=== PATIENT | female | born 1990 | race Caucasian/White ===

== ENCOUNTER → 2021-07-18 10:54 | Outpatient (BNVA) | payer OTHER, SELFPAY | PROVIDERS: Family Provider Family Medicine; PCP Family Medicine; Visit Provider Emergency Medicine | DX: R07.0 Pain in throat (principal); R22.1 Localized swelling, mass and lump, neck; E07.89 Other specified disorders of thyroid | CPT/HCPCS: 84439; 84443; 84481; 85025 ==

== ENCOUNTER → 2021-09-23 09:44 | Outpatient (BNVA) | payer OTHER, SELFPAY | PROVIDERS: Family Provider Family Medicine; PCP Family Medicine; Visit Provider Nurse Practitioner Family | DX: Z20.822 Contact with and (suspected) exposure to COVID-19 (principal); J11.1 Influenza due to unidentified influenza virus with other respiratory manifestations | CPT/HCPCS: 87400; 87635 ==

== ENCOUNTER → 2021-11-18 09:40 | Outpatient (BNVA) | payer OTHER, SELFPAY | PROVIDERS: Family Provider Family Medicine; PCP Family Medicine; Visit Provider Nurse Practitioner Family | DX: J11.1 Influenza due to unidentified influenza virus with other respiratory manifestations (principal) | CPT/HCPCS: 87400 ==

== ENCOUNTER → 2022-02-11 09:32 | Outpatient (BNVA) | payer OTHER, SELFPAY | PROVIDERS: Family Provider Family Medicine; PCP Family Medicine; Visit Provider Emergency Medicine | DX: N92.6 Irregular menstruation, unspecified (principal); Z32.01 Encounter for pregnancy test, result positive | CPT/HCPCS: 81025 ==

== ENCOUNTER 2022-05-15 19:55 | Emergency (ER) | payer BC, MEDICAID, SELFPAY ==
[2022-05-15 20:04] VITALS: BP 118/73; PULSE 90; RESP 24; TEMP 36.8; O2SAT 96
[2022-05-15 21:58] LABS: Basophils % 0.3 %; Eosinophils # 0.3 10^3/uL (0.0-0.8); Eosinophils % 3.6 %; Hematocrit 38.4 % (37.0-47.0); Hemoglobin 13.1 g/dL (11.5-15.3); Lymphocytes # 1.3 10^3/uL (0.8-4.8); Lymphocytes % 13.1 %; Mean Corpuscular HGB Conc 34.1 g/dL (30.0-36.0); Mean Corpuscular Hemoglobin 30.8 pg (28.0-34.0); Mean Corpuscular Volume 90.4 fl (81-99); Mean Platelet Volume 9.2 fL (7.4-10.4); Monocytes # 0.6 10^3/uL (0.2-0.9); Neutrophils % 76.6 %; Nucleated Red Blood Cells % 0 %; Platelet Count 225 10^3/cmm (130-400); Red Blood Count 4.25 10^6/uL (4.1-5.3); Red Cell Distribution Width 12.9 % (12.1-15.1); White Blood Count 9.5 10^3/uL (4.0-10.0)
[2022-05-15 22:00] VITALS: PULSE 78; RESP 18; O2SAT 94
[2022-05-15 22:04] VITALS: PULSE 81; RESP 18; O2SAT 95
[2022-05-15 22:08] LABS: Alanine Aminotransferase 29 U/L (0-33); Alkaline Phosphatase 67 U/L (35-105); Anion Gap 14.9 (5-19); Aspartate Amino Transferase 18 U/L (0-32); Blood Urea Nitrogen 6 mg/dL (6-20); Calcium 9.2 mg/dL (8.5-10.5); Carbon Dioxide 25 mmol/L (22-29); Chloride 102 mmol/L (98-107); Globulin 3.1 g/dL (1.3-4.6); Glomerular Filtration Rate 145.9 mL/min (90-130); Glucose 83 mg/dL (65-115); Osmolality Calculated 283 mOsm/kg (285-295); Potassium 3.9 mmol/L (3.5-5.1); Sodium 138 mmol/L (136-145); Total Bilirubin 0.2 mg/dL (0.15-1.2); Total Protein 7.1 g/dL (6.6-8.7)
[2022-05-15 22:13] LABS: Add Urine Microscopic? NO; Charge for UA Resulting for Rev
[2022-05-15 22:16] LABS: Bilirubin Urine Neg (Negative); Blood Urine Neg (Negative); Glucose Urine UA Norm (Normal); Ketones Urine Negative (Negative); Leukocyte Esterase Urine Negative (Negative); Nitrate Urine Negative (Negative); Protein Urine Neg (Negative); Urine Appearance Clear (CLEAR); Urine Color Yellow (Yellow); Urobilinogen Urine Neg (Negative); pH Urine 7 (5-7)
--- NOTE | 2022-05-15 22:58 | ED_ITS ---
Documented by User: Milagro Freeman, PROTOTYPE TECHNICIAN-C 05/16/22 01:43 HPI - SOB/Dyspnea General: Chief Complaint: Shortness of Breath/Dyspnea Stated Complaint: sob Time Seen by Provider: 05/15/22 20:19 History of Present Illness: HPI Narrative: 31-year-old female in today with complaints of shortness of breath. She reports that over the past week or so she has had significant nasal congestion and drainage. She reports that she is 20 weeks . With a normal without any complications thus far. She reports that she has been using Mucinex that is safe in however last night it really did not help her and she has had more shortness of breath today. She denies any fever, chills, nausea, vomiting. She denies any uterine cramping or vaginal bleeding. She does still feel baby movement that has been a new development over the recent week or so. Associated symptoms: Deny chest pain, fever(s), lightheadedness, palpitations or syncope Review of Systems Const: Denies: fever(s), chills or body aches ENMT: Reports: nasal discharge, nasal congestion and post nasal drip; Denies: throat pain Card: Denies: chest pain, palpitations, irregular heart rhythm, lightheadedness or syncope Resp: Reports: dyspnea, non-productive cough and wheezing; Denies: productive cough : Denies: flank pain, difficulty voiding, dysuria, urinary frequency, urinary urgency or urinary hesitancy Neuro: Denies: headache(s), numbness in extremities or weakness in extremities PFSH ED PFSH: Medical History test positive Social History Smoking and tobacco status: never smoked Female Reproductive History: Spontaneous abortions: No Physical Exam HENMT: COMMON NORMALS: external ears normal; TM's not normal bilaterally (Dull TM no erythema bilateral) EXTERNAL EAR: Yes external ears normal TYMPANIC MEMBRANE: TM(s) not normal bilaterally (Dull TM no erythema bilateral) THROAT: postnasal drainage Resp: EFFORT & INSPECTION: Yes able to speak in complete sentences and Yes symmetric chest movement AUSCULTATION: wheezes expiratory wheezes, inspiratory wheezes and throughout Cardio: COMMON NORMALS: regular rate, regular rhythm, S1 normal heart sound present and S2 normal heart sound present RATE: regular rate RHYTHM: regular rhythm HEART SOUNDS: S1 normal heart sound present and S2 normal heart sound present Course Vital Signs: Vital signs: Vital Signs Temperature 98.3 F 05/15/22 20:04 Pulse Rate 66 05/15/22 23:16 Respiratory Rate 18 05/15/22 23:16 Blood Pressure 129/65 05/15/22 23:16 Pulse Oximetry 92 05/15/22 23:16 Oxygen Delivery Me thod 05/15/22 22:04 MDM - SOB/Dyspnea Medical Decision Making Patient is a 31-year-old female in for nasal congestion, drainage, increased shortness of breath. She is in no acute distress. Patient's vital signs remained stable. She did have some inspiratory expiratory wheezes throughout. Albuterol nebulized treatment provided. Toppled heart tones. Reevaluation?patient reports resolution of symptoms. She reports that she is ready to be discharged to home. We discussed use of home inhaler as needed. I encouraged continued conservative treatment for allergies at home. I encouraged her to follow-up with her MEDICAL RECORDS ANALYST next week. Return to the emergency department for any new or worsening symptoms, increased shortness of breath, fever, chills, nausea, vomiting. Patient and spouse verbalized understanding of instructions and voiced readiness to discharge to home. Lab Data : 05/15/22 21:37 05/15/22 21:37 Labs/Radiology: Laboratory Results WBC 9.5 10^3/uL (4.0-10.0) 05/15/22 21:37 RBC 4.25 10^6/uL (4.1-5.3) 05/15/22 21:37 Hgb 13.1 g/dL (11.5-15.3) 05/15/22 21:37 Hct 38.4 % (37.0-47.0) 05/15/22 21:37 MCV 90.4 fl (81-99) 05/15/22 21:37 MCH 30.8 pg (28.0-34.0) 05/15/22 21:37 MCHC 34.1 g/dL (30.0-36.0) 05/15/22 21:37 RDW 12.9 % (12.1-15.1) 05/15/22 21:37 Plt Count 225 10^3/cmm (130-400) 05/15/22 21:37 MPV 9.2 fL (7.4-10.4) 05/15/22 21:37 Neut % (Auto) 76.6 % 05/15/22 21:37 Lymph % (Auto) 13.1 % 05/15/22 21:37 [place] % (Auto) 6.0 % 05/15/22 21:37 Eos % (Auto) 3.6 % 05/15/22 21:37 Baso % (Auto) 0.3 % 05/15/22 21:37 Neut # (Auto) 7.30 10^3/uL (1.8-7.7) 05/15/22 21:37 Lymph # (Auto) 1.3 10^3/uL (0.8-4.8) 05/15/22 21:37 [place] # (Auto) 0.6 10^3/uL (0.2-0.9) 05/15/22 21:37 Eos # (Auto) 0.3 10^3/uL (0.0-0.8) 05/15/22 21:37 Baso # (Auto) 0.0 10^3/uL (0.0-0.1) 05/15/22 21:37 Nucleated RBC % (auto) 0 % 05/15/22 21:37 Nucleated RBCs # 0.0 /100WBC 05/15/22 21:37 Sodium 138 mmol/L (136-145) 05/15/22 21:37 Potassium 3.9 mmol/L (3.5-5.1) 05/15/22 21:37 Chloride 102 mmol/L (98-107) 05/15/22 21:37 Carbon Dioxide 25 mmol/L (22-29) 05/15/22 21:37 Anion Gap 14.9 (5-19) 05/15/22 21:37 BUN 6 mg/dL (6-20) 05/15/22 21:37 Creatinine 0.5 mg/dL (0.5-0.9) 05/15/22 21:37 GFR Calculation 145.9 mL/min (90-130) H 05/15/22 21:37 Glucose 83 mg/dL (65-115) 05/15/22 21:37 Calculated Osmolality 283 mOsm/kg (285-295) L 05/15/22 21:37 Calcium 9.2 mg/dL (8.5-10.5) 05/15/22 21:37 Total Bilirubin 0.2 mg/dL (0.15-1.2) 05/15/22 21:37 AST 18 U/L (0-32) 05/15/22 21:37 ALT 29 U/L (0-33) 05/15/22 21:37 Alkaline Phosphatase 67 U/L (35-105) 05/15/22 21:37 Total Protein 7.1 g/dL (6.6-8.7) 05/15/22 21:37 Albumin 4.0 g/dL (3.5-5.2) 05/15/22 21:37 Globulin 3.1 g/dL (1.3-4.6) 05/15/22 21:37 Urine Color Yellow (Yellow) 05/15/22 21:47 Urine Appearance Clear (CLEAR) 05/15/22 21:47 Urine pH 7 (5-7) 05/15/22 21:47 Ur Specific [place] 1.010 (1.005-1.030) 05/15/22 21:47 Urine Protein Neg (Negative) 05/15/22 21:47 Urine Glucose (UA) Norm (Normal) 05/15/22 21:47 Urine Ketones Negative (Negative) 05/15/22 21:47 Urine Blood Neg (Negative) 05/15/22 21:47 Urine Nitrate Negative (Negative) 05/15/22 21:47 Urine Bilirubin Neg (Negative) 05/15/22 21:47 Urine Urobilinogen Neg mg/dL (Negative) 05/15/22 21:47 Ur Leukocyte Esterase Negative (Negative) 05/15/22 21:47 Discharge Plan Discharge Patient Disposition: Home Clinical Impression: Wheezing, Allergic rhinitis Condition: Stable Prescriptions: New albuterol sulfate 90 mcg/actuation aerosol powdr breath activated 2 inh inhalation Q6H PRN (Reason: shortness of breath or wheezing) Qty: 1 0RF No Action guaifenesin [Mucinex] 600 mg tablet extended release 12hr 600 mg PO BID PNV #[id number] acid-omega3 30 mg iron-10 mg iron-1 mg capsule 1 cap PO .COMPLEX Qty: 30 2RF Rx Instructions: 1 cap PO daily; Discharge Orders: Discharge ED (Routine); Ordered 05/15/22 Ordered By: Milagro Freeman Referrals: Erika Castaneda DO [Primary Care Provider] - Discharge Diet: Usual diet Discharge Activity: Resume usual activity Patient Instructions: Wheezing (ED) Activity Restrictions/Additional Instructions: Use the inhaler as instructed as needed for wheezing. Continue conservative treatments at home to help manage allergies. Call next week and follow-up with your MEDICAL RECORDS ANALYST. Return to the emergency department for any new or worsening symptoms or shortness of breath and wheezing not relieved with the albuterol inhaler. Coding Level of Care Code ED Lpn Medical Assistant for Chg Fwd Exam Expanded Problem Focused Documented by User: Pako Santa DO 05/16/22 06:30 HPI - SOB/Dyspnea General: Chief Complaint: Shortness of Breath/Dyspnea Stated Complaint: sob Time Seen by Provider: 05/15/22 20:19 PFSH ED PFSH: Medical History test positive Social History Smoking and tobacco status: never smoked Course Vital Signs: Vital signs: Vital Signs Temperature 98.3 F 05/15/22 20:04 Pulse Rate 66 05/15/22 23:16 Respiratory Rate 18 05/15/22 23:16 Blood Pressure 129/65 05/15/22 23:16 Pulse Oximetry 92 05/15/22 23:16 Oxygen Delivery Me thod 05/15/22 22:04 MDM - SOB/Dyspnea Medical Decision Making Patient is a 31-year-old female in for nasal congestion, drainage, increased shortness of breath. She is in no acute distress. Patient's vital signs remained stable. She did have some inspiratory expiratory wheezes throughout. Albuterol nebulized treatment provided. Toppled heart tones. Reevaluation?patient reports resolution of symptoms. She reports that she is ready to be discharged to home. We discussed use of home inhaler as needed. I encouraged continued conservative treatment for allergies at home. I encouraged her to follow-up with her MEDICAL RECORDS ANALYST next week. Return to the emergency department for any new or worsening symptoms, increased shortness of breath, fever, chills, nausea, vomiting. Patient and spouse verbalized understanding of instructions and voiced readiness to discharge to home. Chart reviewed and patient discussed with midlevel. Agree with assessment and plan. Lab Data : 05/15/22 21:37 05/15/22 21:37 Labs/Radiology: Laboratory Results WBC 9.5 10^3/uL (4.0-10.0) 05/15/22 21:37 RBC 4.25 10^6/uL (4.1-5.3) 05/15/22 21:37 Hgb 13.1 g/dL (11.5-15.3) 05/15/22 21:37 Hct 38.4 % (37.0-47.0) 05/15/22 21:37 MCV 90.4 fl (81-99) 05/15/22 21:37 MCH 30.8 pg (28.0-34.0) 05/15/22 21:37 MCHC 34.1 g/dL (30.0-36.0) 05/15/22 21:37 RDW 12.9 % (12.1-15.1) 05/15/22 21:37 Plt Count 225 10^3/cmm (130-400) 05/15/22 21:37 MPV 9.2 fL (7.4-10.4) 05/15/22 21:37 Neut % (Auto) 76.6 % 05/15/22 21:37 Lymph % (Auto) 13.1 % 05/15/22 21:37 [place] % (Auto) 6.0 % 05/15/22 21:37 Eos % (Auto) 3.6 % 05/15/22 21:37 Baso % (Auto) 0.3 % 05/15/22 21:37 Neut # (Auto) 7.30 10^3/uL (1.8-7.7) 05/15/22 21:37 Lymph # (Auto) 1.3 10^3/uL (0.8-4.8) 05/15/22 21:37 [place] # (Auto) 0.6 10^3/uL (0.2-0.9) 05/15/22 21:37 Eos # (Auto) 0.3 10^3/uL (0.0-0.8) 05/15/22 21:37 Baso # (Auto) 0.0 10^3/uL (0.0-0.1) 05/15/22 21:37 Nucleated RBC % (auto) 0 % 05/15/22 21:37 Nucleated RBCs # 0.0 /100WBC 05/15/22 21:37 Sodium 138 mmol/L (136-145) 05/15/22 21:37 Potassium 3.9 mmol/L (3.5-5.1) 05/15/22 21:37 Chloride 102 mmol/L (98-107) 05/15/22 21:37 Carbon Dioxide 25 mmol/L (22-29) 05/15/22 21:37 Anion Gap 14.9 (5-19) 05/15/22 21:37 BUN 6 mg/dL (6-20) 05/15/22 21:37 Creatinine 0.5 mg/dL (0.5-0.9) 05/15/22 21:37 GFR Calculation 145.9 mL/min (90-130) H 05/15/22 21:37 Glucose 83 mg/dL (65-115) 05/15/22 21:37 Calculated Osmolality 283 mOsm/kg (285-295) L 05/15/22 21:37 Calcium 9.2 mg/dL (8.5-10.5) 05/15/22 21:37 Total Bilirubin 0.2 mg/dL (0.15-1.2) 05/15/22 21:37 AST 18 U/L (0-32) 05/15/22 21:37 ALT 29 U/L (0-33) 05/15/22 21:37 Alkaline Phosphatase 67 U/L (35-105) 05/15/22 21:37 Total Protein 7.1 g/dL (6.6-8.7) 05/15/22 21:37 Albumin 4.0 g/dL (3.5-5.2) 05/15/22 21:37 Globulin 3.1 g/dL (1.3-4.6) 05/15/22 21:37 Urine Color Yellow (Yellow) 05/15/22 21:47 Urine Appearance Clear (CLEAR) 05/15/22 21:47 Urine pH 7 (5-7) 05/15/22 21:47 Ur Specific [place] 1.010 (1.005-1.030) 05/15/22 21:47 Urine Protein Neg (Negative) 05/15/22 21:47 Urine Glucose (UA) Norm (Normal) 05/15/22 21:47 Urine Ketones Negative (Negative) 05/15/22 21:47 Urine Blood Neg (Negative) 05/15/22 21:47 Urine Nitrate Negative (Negative) 05/15/22 21:47 Urine Bilirubin Neg (Negative) 05/15/22 21:47 Urine Urobilinogen Neg mg/dL (Negative) 05/15/22 21:47 Ur Leukocyte Esterase Negative (Negative) 05/15/22 21:47 Discharge Plan Discharge Patient Disposition: Home Clinical Impression: Wheezing, Allergic rhinitis Condition: Stable Prescriptions: New albuterol sulfate 90 mcg/actuation aerosol powdr breath activated 2 inh inhalation Q6H PRN (Reason: shortness of breath or wheezing) Qty: 1 0RF No Action guaifenesin [Mucinex] 600 mg tablet extended release 12hr 600 mg PO BID PNV #[id number] acid-omega3 30 mg iron-10 mg iron-1 mg capsule 1 cap PO .COMPLEX Qty: 30 2RF Rx Instructions: 1 cap PO daily; Discharge Orders: Discharge ED (Routine); Ordered 05/15/22 Ordered By: Milagro Freeman Referrals: Erika Castaneda DO [Primary Care Provider] - Discharge Diet: Usual diet Discharge Activity: Resume usual activity Patient Instructions: Wheezing (ED) Activity Restrictions/Additional Instructions: Use the inhaler as instructed as needed for wheezing. Continue conservative treatments at home to help manage allergies. Call next week and follow-up with your MEDICAL RECORDS ANALYST. Return to the emergency department for any new or worsening symptoms or shortness of breath and wheezing not relieved with the albuterol inhaler. Coding Level of Care Code ED Lpn Medical Assistant for Sunshineg Fwd Exam Expanded Problem Focused
[2022-05-15 23:16] VITALS: BP 129/65; PULSE 66; RESP 18; O2SAT 92
== END 2022-05-15 23:17 | disposition home or self-care (01) ==
PROVIDERS: Emergency Provider Nurse Practitioner Family; PCP Family Medicine
DX: J30.9 Allergic rhinitis, unspecified (principal); R06.2 Wheezing
CPT/HCPCS: 80053; 81003; 85025; 94640; 99283; J7611

== ENCOUNTER → 2022-09-05 16:38 | Outpatient (BNVA) | payer BC, MEDICAID, SELFPAY | PROVIDERS: PCP Family Medicine; Visit Provider Emergency Medicine | DX: R68.89 Other general symptoms and signs (principal); R11.0 Nausea; R11.2 Nausea with vomiting, unspecified; Z33.1 Pregnant state, incidental | CPT/HCPCS: 87400 ==

== ENCOUNTER → 2023-06-12 10:05 | Outpatient (BNVA) | payer OTHER, SELFPAY | PROVIDERS: PCP Family Medicine; Visit Provider Emergency Medicine | DX: J02.9 Acute pharyngitis, unspecified (principal); R05.8 Other specified cough | CPT/HCPCS: 87071; 87880 ==

== ENCOUNTER 2025-02-03 08:27 | Emergency (ER) | payer BC, MEDICAID, SELFPAY ==
--- NOTE | 2025-02-03 08:31 | XRR_ITS ---
PROCEDURE INFORMATION: Exam: XR Left Foot Exam date and time: 02/03/2025 8:33 AM Age: 34 years old Clinical indication: Injury or trauma; Other: Rolled ankle; Sprain or strain; Left TECHNIQUE: Imaging protocol: Radiologic exam of the left foot. Views: 3 or more views. COMPARISON: CR (LOW EXM, ) 02/03/2025 8:33 AM FINDINGS: Bones/joints: No acute fracture is detected Soft tissues: There is mild soft tissue swelling. XR/XR foot LT min 3V* [id number] IMPRESSION: No acute fracture detected
--- NOTE | 2025-02-03 08:31 | XRR_ITS ---
PROCEDURE INFORMATION: Exam: XR Left Ankle Exam date and time: 02/03/2025 8:33 AM Age: 34 years old Clinical indication: Injury or trauma; Other: Rolled ankle; Sprain or strain; Left TECHNIQUE: Imaging protocol: Radiologic exam of the left ankle. Views: 3 or more views. COMPARISON: CR XR foot LT min 3V* [id number] 02/03/2025 8:33 AM FINDINGS: Bones/joints: There is no detectable joint effusion. There are no acute fractures. The ankle mortise is intact. Soft tissues: There is mild soft tissue swelling. XR/XR ankle LT min 3V* [id number] IMPRESSION: Mild soft tissue swelling. No acute fracture detected
[2025-02-03 08:37] VITALS: BP 118/85; PULSE 88; RESP 17; TEMP 36.7; O2SAT 96; BMI 37.9
--- NOTE | 2025-02-03 08:37 | ED_ITS ---
HPI - Extremity Injury (Lower) General: Chief Complaint: Extremity Injury, Lower Stated Complaint: fell, left ankle injury Time Seen by Provider: 02/03/25 08:31 Source: patient Mode of arrival: ambulatory Limitations: no limitations History of Present Illness: 34-year-old female who states she steppe d in a hole last night twisted her left ankle states she has been having left ankle pain since then. States pains in the left lateral ankle and foot rates pain a 7 out of 10 has not been able ambulate denies any other injuries Related Data Previous Rx's ?Medication ?Instructions ?Recorded vitamin#30 30 mg iron-10 1 cap PO .COMPLEX #3 0 caps 04/01/22 mg iron-folic acid 1 mg-omg3 capsule albuterol sulfate 90 mcg/actuation 2 inh inhalation Q6 H PRN shortness 05/15/22 breath activated powder inhaler of breath or wheezing #1 ea fexofenadine 60 mg-pseudoephedrine 1 tab PO Q12H PRN s inus symptoms 06/12/23 ER 120 mg tablet,ext.release,12 hr 14 days #30 tabs (Celina-D 12 Hour) ondansetron 4 mg disintegrating 4 mg PO Q6H PRN nausea and 02/05/24 tablet vomiting #30 tabs kdpnlcjyvalzr-LV-zlwfqewhpfd 5 5 ml PO Q4H PRN cold sy mptoms #237 02/05/24 mg-10 mg-100 mg/5 mL oral liquid mL (Adult Tussin CF) Allergies Allergy/AdvReac Type Severity Reaction Status Date / Time No Known Allergies Allergy Verified 02/05/24 09:21 Review of Systems Const: Denies: fever(s), chills, body aches or change in appetite ENMT: Denies: throat pain or dental pain Card: Denies: chest pain Resp: Denies: dyspnea GI: Denies: abdominal pain, nausea, vomiting or diarrhea Musc: Reports: extremity pain; Denies: neck pain or back pain Skin/Breast: Denies: rash Neuro: Denies: headache(s) PFSH ED PFSH: Medical History test positive Social History Smoking and tobacco/nicotine status: never used tobacco/nicotine Female Reproductive History: Spontaneous abortions: No Physical Exam Const: COMMON NORMALS: no acute distress, patient oriented x3 and healthy appearing HENMT: COMMON NORMALS: normocephalic and atraumatic HEAD & SCALP: normocephalic and atraumatic Neck/C-Spine: COMMON NORMALS: full ROM and supple Chest: COMMONS NORMALS: normal inspection of the chest Resp: COMMON NORMALS: normal respiratory effort Cardio: COMMON NORMALS: regular rate RATE: regular rate Extremity: NARRATIVE EXTREMITY EXAM: Tenderness over left lateral ankle and foot does have swelling no obvious deformity Neuro: COMMON NORMALS: patient oriented x3, moves all extremities and no focal motor deficits Psych: COMMON NORMALS: mental status grossly normal, Normal thought process present and cooperative THOUGHT PROCESS: Normal thought process present Skin: COMMON NORMALS: no rashes or lesions noted and no wounds GENERAL SKIN EXAM: no rashes or lesions noted Course Vital Signs: Vital signs: Vital Signs Temperature 98.1 F 02/03/25 08:37 Pulse Rate 88 02/03/25 08:37 Respiratory Rate 17 02/03/25 08:37 Blood Pressure 118/85 02/03/25 08:37 Pulse Oximetry 96 02/03/25 08:37 Oxygen Delivery Me thod Room Air 02/03/25 08:37 MDM - Extremity Injury (Lower) Medical Decision Making Patient presents for an ankle sprain imaging here shows no fracture we will place her in a splint she is to weight-bear as tolerated we will get her follow- up with podiatry. Medical Records I reviewed the patient's medical records. Lab Data Radiology Impressions Ankle X-Ray 02/03/25 08:31 IMPRESSION: Mild soft tissue swelling. No acute fracture detected All radiology interpretation(s) finalized by discharge Discharge Plan Discharge Patient Disposition: Home Clinical Impression: Ankle sprain and strain Condition: Stable Prescriptions: No Action fexofenadine-pseudoephedrine [Celina-D 12 Hour] 60-120 mg tablet extended release 12 hr 1 tab PO Q12H PRN (Reason: sinus symptoms) 14 Days Qty: 30 2RF Adult Tussin CF 5-10-100 mg/5 mL liquid 5 ml PO Q4H PRN (Reason: cold symptoms) Qty: 237 0RF Rx Instructions: follow label instructions ondansetron 4 mg tablet,disintegrating 4 mg PO Q6H PRN (Reason: nausea and vomiting) Qty: 30 0RF Rx Instructions: 340b please PNV #[id number] acid-omega3 30 mg iron-10 mg iron-1 mg capsule 1 cap PO .COMPLEX Qty: 30 2RF Rx Instructions: 1 cap PO daily; albuterol sulfate 90 mcg/actuation aerosol powdr breath activated 2 inh inhalation Q6H PRN (Reason: shortness of breath or wheezing) Qty: 1 0RF Discharge Orders: Discharge ED (Routine); Ordered 02/03/25 Ordered By: Linsey Mobley Referrals: Maldonado Liang DPM [Physician, Podiatry] - 4-7 days Rashad Abrams MD [Primary Care Provider] Discharge Diet: Advance as tolerated Discharge Activity: Limit activity as instructed and Use walker/crutches as instructed Patient Instructions: Ankle Sprain (ED) Print Language: Mongolian Coding Level of Care Code ED Marine Mammal Trainer for Marta Anderson
[2025-02-03] MEDS: HYDROcodone-acetaminophen 5-325 mg Tablet 1 TAB PO (08:44)
[2025-02-03 09:33] VITALS: BP 102/78; PULSE 79; O2SAT 95
--- NOTE | 2025-02-05 12:56 | PC.NURSE ---
Called pt and scheduled her podiatry follow up appt for tomorrow 02/06/25 at 0015.
== END 2025-02-03 09:35 | disposition home or self-care (01) ==
PROVIDERS: Emergency Provider Emergency Medicine; PCP Family Medicine
DX: S93.402A Sprain of unspecified ligament of left ankle, initial encounter (principal); W18.43XA Slipping, tripping and stumbling without falling due to stepping from one level to another, initial encounter; Z79.899 Other long term (current) drug therapy
CPT/HCPCS: 29515; 73610; 73630; 99283; E0114; J9999

== ENCOUNTER 2025-03-23 19:13 | Emergency (ER) | payer BC, MEDICAID, SELFPAY ==
--- OUTSIDE RECORDS SUMMARY | 2023-02-01 07:00 | XMS_ITS | Continuity of Care Document ---
Author Organization [facility] Address [id number] [address] Phone Care Team Providers Care Reamer Hand Name Role Phone Alfonso Peralta DMD Unavailable Unavailable Allergies, Adverse Reactions, Alerts Substance Reaction Status Criticality No Known allergies Procedures Procedure Date Limited Oral Evaluation Problem Focused Intraoral Periapical First Film Extraction, Erupted Tooth Or Exposed Lea t (Elevati Limited oral eval, x-ray & 1st extractio n Bitewings Four Films Panoramic Film Intraoral Periapical First Film Intraoral Periapical Each Additional Film Intraoral Periapical Each Additional Film Intraoral Periapical Each Additional Film Comprehensive Oral Evaluatio n New Or Established Intraoral Periapical First Film Limited Oral Evaluation Problem Focused Advance Directives Directive Yes / No Effective Date File Name No Information Encounters Encounter Description Practice Location Reason(s) For Visit Diagnoses Date Provider Providers Copied on Encounter [facility], [id number], [address], [place] tel:[phone] [facility] No Information Fabian Hamilton. [address] [place], [address], [place]. tel:[phone] Referring Provider: Alfonso Peralta, [address] [place], [address]. tel:[phone] [facility], [id number] [place], [id number], [place] tel:[phone] [address] [facility] No Information Edgardo Pandey. [address], [place], [address], [place]. tel:[phone] Referring Provider: Katherin Reynoso, [address] [place], [address]. tel:[phone] [facility], [id number] [place], [address], [place] tel:[phone] [facility] No Information Clarence Peters. [address], [place], [address], [place]. tel:[phone] Referring Provider: Fran Lima, [address] [place], [address]. tel:[phone] Family History Family Member Type Diagnosis Age At Onset No Information Payers Payer name Insurance type Covered green party ID Adrianaheriberto oliviersheeba(marybeth) Loraine Bundled Slide 1 09 Social History Type Description Quantity Date Captured Comments Alcohol Use Details Unknown Caffeine Use Details Unknown Tobacco Use Status No Information Smoking Status No Information Sex Female Gender Identity Female Chief Complaint And Reason For Visit No Information Reason For Referral Reason For Referral No Information History Of Present Illness Encounter Date Complaint History Of Prese nt Illness No Information Functional Status Date Functional Assessmen t No Information Instructions Date Instruction Additional Infor mation No Information Assessments Type Assessment Date No Information Patient Care Teams Name Effective Dates (start - stop) Status Members No Information
[2025-03-23 19:17] VITALS: BP 133/84; PULSE 89; RESP 18; TEMP 36.4; O2SAT 97; BMI 38.2
--- OUTSIDE RECORDS SUMMARY | 2025-03-23 19:19 | XMS_ITS | Clinical Summary ---
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
[2025-03-23] MEDS: ondansetron 2 mg/ML SDV 2 mL 4 MG IVP (21:03)
[2025-03-23] MEDS: morphine 4 mg/mL SDV 1 mL IVP (21:03)
[2025-03-23] MEDS: mupirocin oint 22 gm 1 APPLIC TOPICAL (23:08)
--- NOTE | 2025-03-27 17:31 | DCPLANNER ---
Message sent to wound care for follow -up
== END 2025-03-23 23:33 | disposition home or self-care (01) ==
PROVIDERS: Emergency Provider Physician Assistant; PCP Family Medicine
DX: T21.20XA Burn of second degree of trunk, unspecified site, initial encounter (principal); X10.1XXA Contact with hot food, initial encounter
CPT/HCPCS: 96374; 96375; 99284; 99291; J2270; J2405; J9999